=== PATIENT | female | born 1955 | race Caucasian/White ===

== ENCOUNTER → 2017-08-19 09:34 | Outpatient (CLI) | payer BC | END | disposition home or self-care (01) | LOC: D.US 09:34 | DX: R31.9 Hematuria, unspecified (principal) ==

== ENCOUNTER → 2017-09-04 10:24 | Outpatient (CLI) | payer BC | END | disposition home or self-care (01) | LOC: D.RAD 10:24 | DX: N20.0 Calculus of kidney (principal) ==

== ENCOUNTER → 2017-09-04 13:14 | Outpatient (CLI) | payer BC | END | disposition home or self-care (01) | LOC: D.LABREF 13:14 | DX: N39.0 Urinary tract infection, site not specified (principal) ==

== ENCOUNTER → 2017-09-08 12:59 | Outpatient (CLI) | payer BC | END | disposition home or self-care (01) | LOC: D.CT 12:59 | DX: R31.21 Asymptomatic microscopic hematuria (principal) ==

== ENCOUNTER → 2017-09-22 18:07 | Outpatient (CLI) | payer BC | END | disposition home or self-care (01) | LOC: D.LABREF 18:07 | DX: R31.9 Hematuria, unspecified (principal) ==

== ENCOUNTER → 2017-11-05 09:26 | Outpatient (CLI) | payer BC ==
[~2017-11-05 09:26] MED LIST: BREO ELLIPTA 21 EACH; SINGULAIR10 MG PO
[2017-12-10 07:43] VITALS: BMI 20.5
== END | disposition home or self-care (01) ==
LOC: D.LAB 09:26 → D.RT 01-07 10:00
DX: J45.909 Unspecified asthma, uncomplicated (principal); J32.9 Chronic sinusitis, unspecified; R93.8 Abnormal findings on diagnostic imaging of other specified body structures

== ENCOUNTER 2017-12-10 06:48 | Day surgery (SDC) | payer BC ==
[~2017-12-10] VITALS: Ht 160 cm; Wt 52.6 kg
--- NOTE | ~2017-12-10 | OP ---
PATIENT NAME: CLIFF FONTANEZ MEDICAL RECORD: [id number] LOCATION:D[facility] ADMISSION DATE: SURGEON: ERIC PHILLIPS MD DATE OF OPERATION: 12/10/2017 SURGEON: Eric Phillips MD ANESTHESIA: MAC by Doris Good CRNA. PREOPERATIVE DIAGNOSIS: Microscopic hematuria. FINDINGS: On cystoscopy were single ureteral orifices bilaterally. No bladder tumors. Some bladder inflammation was noted. The uterus is pushing on the dome of the bladder. PROCEDURE: Cystoscopy. BLOOD LOSS: None. CLINICAL HISTORY: This is a 61-year-old female, who is a former smoker. She has COPD. She was sent with a chief complaint of microscopic hematuria to my office. She has had a full workup including a CT scan and urine cytology, which were normal. The imaging did show bilateral upper lobe pneumonia. She was treated for this by Dr. Wise. He also discovered that she has asthma. She comes today to have cystoscopy to complete the hematuria workup. She has no medication allergies. 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 DESCRIPTION OF PROCEDURE: The patient was given IV sedation. She was placed into dorsal lithotomy position and prepped and draped. A 17-Lux[place]bourg[place] cystoscope with 30-degree lens was used for visualization. Findings are as outlined above. The bladder was emptied through the cystoscope sheath and then the scope was removed entirely. I will see the patient in followup on a p.r.n. basis. TRANSINT:[id number] Voice Confirmation ID: [id number] DOCUMENT ID: [id number] ERIC PHILLIPS MD at 1140 CC: [id number] DICTATION DATE: 12/10/17 1054 SURVEYOR HELPER: 12/10/17 1108 [facility] [address] [place] [address]
[2017-12-10 07:15] LABS: HEMATOCRIT 41.7 % (36.0-48.0); HEMOGLOBIN 13.4 g/dL (12-16); MCHC 32.1 g/dL (31.0-37.0); MCV 90.3 fL (80.0-100.0); MEAN PLATELET VOLUME 9.8 fL (7.4-10.4); RBC 4.62 10x6/uL (4.00-5.40); RDW 14.9 % (11.5-14.5); WBC 6.1 10x3/uL (4.8-10.8)
[2017-12-10 07:43] VITALS: BP 135/78; Ht 160 cm; Wt 52.6 kg
== END 2017-12-10 12:40 | disposition home or self-care (01) ==
LOC: D.OPS 06:48 → D.PAN 08:45 → D.OPS 09:00
PROVIDERS: Anesthesiology
DX: R31.29 Other microscopic hematuria (principal)

== ENCOUNTER → 2018-12-01 08:52 | Outpatient (CLI) | payer BC ==
[2017-12-10 07:43] VITALS: BMI 20.5
== END | disposition home or self-care (01) ==
LOC: D.RAD 08:30
PROVIDERS: ATTEND Nurse Practitioner Acute Care
DX: R91.8 Other nonspecific abnormal finding of lung field (principal)

== ENCOUNTER → 2018-12-28 14:59 | Outpatient (CLI) | payer BC ==
[2017-12-10 07:43] VITALS: BMI 20.5
== END | disposition home or self-care (01) ==
LOC: D.RAD 14:59 → D.RT 16:00
PROVIDERS: ATTEND Internal Medicine Pulmonary Disease
DX: J45.909 Unspecified asthma, uncomplicated (principal)

== ENCOUNTER → 2019-06-07 10:48 | Outpatient (CLI) | payer BC ==
[2017-12-10 07:43] VITALS: BMI 20.5
== END | disposition home or self-care (01) ==
LOC: D.RAD 03-10 10:45
PROVIDERS: ATTEND Internal Medicine Pulmonary Disease
DX: J44.9 Chronic obstructive pulmonary disease, unspecified (principal)